=== PATIENT | female | born 1950 | race Caucasian/White ===

== ENCOUNTER 2017-01-30 11:41 | Emergency (ER) | payer OTHER, MEDICARE ==
[~2017-01-30] VITALS: Ht 162.6 cm; Wt 82.6 kg
[~2017-01-30 11:41] MED LIST: CLINDAMYCIN HC300 M1 PO; HYDRODIURIL 2525 MG PO; KEFLEX 250MG C250 MG PO; LISINOPRIL10 MG PO; METFORMIN1000 MG PO; PREDNISONE 20MG20 MG PO; SULFAMETHOXAZOLE-TMP PO
[2017-01-30] MEDS ORDERED: CLOBETASOL PROP15 GM TOP (12:23)
[2017-01-30] MEDS ORDERED: TRAMADOL HCL50 M1 PO (12:23)
[2017-01-30] MEDS ORDERED: LISINOPRIL10 M1 PO (12:23)
[2017-01-30] MEDS ORDERED: HYDROXYZINE HCL10 M1 (12:23)
[2017-01-30] MEDS ORDERED: METFORMIN HCL1000 M1 PO (12:23)
[2017-01-30] MEDS ORDERED: OXYCODONE-ACET1 EACH PO (12:24)
[2017-01-30] MEDS ORDERED: PACLITAXEL6 MG/1 ML (12:24)
--- NOTE | 2017-01-30 12:30 | ED HAND/WRIST INJURY COMPLAINT ---
History of Present Illness General Chief Complaint: Hand or Wrist Injury Stated Complaint: FINGER SWELLING Source: patient, family, old records Exam Limitations: no limitations Vital Signs & Intake/Output Vital Signs & Intake/Output Vital Signs Date Time Temp Pulse Resp B/P Pulse O2 O2 Flow FiO2 Ox Delivery Rate 01/30 1314 97.4 103 18 135/71 100 Room Air 01/30 1158 95.4 108 18 149/94 99 Allergies Coded Allergies: NO KNOWN ALLERGIES (11/06/11) Reconcile Medications Clobetasol Propionate 0.05 % CREAM..G. 1 ALONSO TOP BID RASH (Reported) apply to affected area(s) Hydroxyzine HCl (Unknown Strength) TABLET (Unknown Dose) PRN PRN ITCHING ( Reported) Lisinopril 10 MG TABLET 1 TAB PO DAILY HTN (Reported) Metformin HCl 1,000 MG TABLET 1 TAB PO BID DIABETES (Reported) Oxycodone HCl/Acetaminophen (Oxycodone-Acetaminophen 5-325) 5 MG-325 MG TABLET 1 TAB PO TIDPRN PRN PAIN (Reported) Oxycodone HCl/Acetaminophen (Percocet 5-325 MG Tablet) 5 MG-325 MG TABLET 1 TAB PO BID PRN PAIN Paclitaxel (Unknown Strength) VIAL (Unknown Dose) ONCE A WEEK BREAST CANCER ( Reported) Sulfamethoxazole/Trimethoprim (Bactrim Ds Tablet) 800 MG-160 MG TABLET 1 TAB PO BID paronychia Tramadol HCl 50 MG TABLET 1 TAB PO TIDPRN PRN PAIN (Reported) Triage Note: C/O PAIN, REDNESS, SWELLING TO RIGHT FOREFIGER WITH BLISTER AROUND NAILBED SINCE YESTERDAY. ATTRIBUTES SXS TO CHEMOTHERAPY (ON PAXIL) Triage Nurses Notes Reviewed? yes Duration: day(s): (2), constant Timing: recent history Injury Environment: home Severity: moderate Severity Numbers: 6 Pain/Injury Location: Right: 2nd finger. Method of Injury: unknown No Modifying Factors: none Associated Symptoms: swelling, redness HPI: 67-year-old female presents emergency room for evaluation complaining of a questionable blister pain that is throbbing aching however improved since yesterday to her right second finger. She denies any known injury or trauma. The patient is currently on taxol for breast ca. she is right-hand dominant no fevers or chills. She states the pain was worse last night and she had difficulty moving her finger however this morning the symptoms have resolved. She took a Percocet for her pain with improvement pain is aching throbbing 6 out of 10. There is no other modifying factors or associated symptoms. (LUCIE GREENE) Past History Travel History Traveled to [place] past 21 day No Medical History Any Pertinent Medical History? see below for history Neurological: NONE EENT: NONE Cardiovascular: HTN, Respiratory: NONE Gastrointestinal: NONE Hepatic: NONE Renal: NONE Musculoskeletal: NONE Psychiatric: NONE Endocrine: DM Cancer(s): RT BREAST CANCER Other Medical Hx: Recent treatment for Lyme disease Surgical History Surgical History: non-contributory Psychosocial History What is your primary language Turkish Tobacco Use: Never used ETOH Use: denies use Family History Hx Contributory? No (LUCIE GREENE) Review of Systems Review of Systems Constitutional: Reports: see HPI. All Other Systems: Reviewed and Negative Comments Review of systems: See HPI, All other systems negative. Constitutional, no chills no fever, no malaise HEENT: no sore throat no congestion, Cardiovascular: No chest pain , no palpitation , Skin, no rashes, no change in skin Respiratory: No dyspnea no cough no sputum GI: No nausea no vomiting, no diarrhea, : No dysuria Muscle skeletal: No joint pain,, no back pain, no neck pain, Neurologic: No numbness no headache Psych: No stress Heme/endocrine: No bruising no bleeding Immunology: No lymphadenopathy (LUCIE GREENE) Physical Exam Physical Exam General Appearance: well developed/nourished, no apparent distress, alert Hand Left: normal inspection, normal range of motion Hand Right: infection, 2nd finger Comments: Well-developed well-nourished patient in no apparent distress. HEENT: Atraumatic, extraocular motion intact Neck: Supple, FROM, Back: FROM Respiratory: No respiratory distress. Patient speaking in full complete sentences. Breath sounds clear to auscultation bilaterally: NO W/R/R Shoulder: Atraumatic/Stable. FROM . Elbow: Atraumatic/stable. FROM. No laxity Upper arm/Forearm: Atraumatic. Nontender. No edema, 5 out of 5 special officer automat strength noted to bilateral upper extremities Hand/Wrist: There is a indurated fluctuant area of ecchymosis abscess noted to the proximal aspect of the right second nailbed, tender to palpation Refills within normal limits. Sensation Skin intact. FROM Pulses: Normal/equal radial pulses bilaterally. Brisk cap refill Lower Extremities: full range of motion Neuro: Alert and oriented x3 Skin: Warm & dry;No appreciable rash on exposed skin Psych: Mood affect normal, normal memory normal judgment. (LUCIE GREENE) Progress Differential Diagnosis: abscess, cellulitis, contusion, compartment syndrome, fracture, paronychia, sprain Plan of Care: Orders Procedure Date/time Status EXTREMETIES CULTURE 01/30 1241 Active Microbiology 01/30 130 EXTREMITIE: Culture & Sensitivity - RECD 01/30 1305 EXTREMITIE: Gram Stain - RECD After verbal consent was obtained digital block to the right second finger performed by me using lidocaine 1%, area was cleansed with Betadine. A small incision was made over the paronychia with a large amount of purulent discharge cultures were sent and discussed with patient need close follow up with her primary care physician or oncologist whom she is already scheduled to see on Wednesday. Prescription for Bactrim was provided patient tolerated procedure well sterile dressing was applied I discussed with the patient return precautions, she feels comfortable this plan I answered all of her questions cleared for discharge (LUCIE GREENE) Departure Departure Time of Disposition: 1304 Disposition: HOME OR SELF CARE Condition: Stable Clinical Impression Primary Impression: Paronychia Referrals: AXEL WELSH,YUN Ernst (PCP/Family) Additional Instructions: folllow up with your oncologist next week as scheduled. bactrim as directed thsi was sent to your pharmacy. bacitracin daily keep wound covered. return at anytime sooner with any concerns Departure Forms: Customer Survey General Discharge Information Prescriptions: Current Visit Scripts Sulfamethoxazole/Trimethoprim (Bactrim Ds Tablet) 1 TAB PO BID #6 TAB Oxycodone HCl/Acetaminophen (Percocet 5-325 MG Tablet) 1 TAB PO BID PRN PAIN #12 TAB (LUCIE GREENE) PA/FIRE MANAGEMENT TECHNICIAN Co-Sign Statement Statement: ED Attending supervision documentation- [X] I saw and evaluated the patient. I have also reviewed all the pertinent lab results and diagnostic results. I agree with the findings and the plan of care as documented in the PA's/FIRE MANAGEMENT TECHNICIAN's documentation. [X] I have reviewed the ED Record and agree with the PA's/FIRE MANAGEMENT TECHNICIAN's documentation. [] Additions or exceptions (if any) to the PAs/FIRE MANAGEMENT TECHNICIAN's note and plan are summarized below: [] (PAULINA WELSH,YUN [place]) Procedures Incision and Drainage Site: r 2nd finger Blade Size: 11 I & D Procedure: Yes: betadine prep, sterile drapes applied, sterile dressing applied. Progress: digital block r 2nd finger lidocaine 1% 5 cc total pt nv intact after procedure tolerated well (ISHAAN GALVIN,LUCIE)
[2017-01-30] MEDS ORDERED: BACTRIM DS TAB1 EACH PO (13:07)
[2017-01-30 13:14] VITALS: BP 135/71
[2017-01-30] MEDS ORDERED: PERCOCET 5-3251 EACH PO (13:16)
[2017-03-09] MEDS ORDERED: NEXIUM 24HR22.3 MG PO (16:09)
== END 2017-01-30 13:20 ==
LOC: ERH 11:41
DX: L03.011 Cellulitis of right finger (principal)
CPT/HCPCS: 87184; 87070; 87147

== ENCOUNTER → 2017-03-12 | Day surgery (SDC) | payer OTHER, MEDICARE ==
[~2017-03-12] VITALS: Ht 162.6 cm; Wt 83.0 kg
[~2017-03-12] MED LIST changes: +BACTRIM DS TAB1 EACH PO; +CLOBETASOL PROP15 GM TOP; +HYDROXYZINE HCL10 M1; +LISINOPRIL10 M1 PO; +METFORMIN HCL1000 M1 PO; +NEXIUM 24HR22.3 MG PO; +OXYCODONE-ACET1 EACH PO; +PACLITAXEL6 MG/1 ML; +PERCOCET 5-3251 EACH PO; +TRAMADOL HCL50 M1 PO
--- NOTE | 2017-03-12 11:13 | MAMMOGRAPHY REPORT ---
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 COMPARISON: Ultrasound-guided biopsy and mammogram dated 08/04/2016. MRI scan and postbiopsy mammogram dated 09/07/2016. TECHNIQUE NEEDLE LOC: Proper informed consent is obtained from the patient after discussion of the procedure, potential risks and complications, and alternatives including declining the procedure today. Patient was given an opportunity for questions. The patient appeared to understand. The patient consented to the procedure and signed the consent form. RIGHT BREAST: GUIDANCE: Digital mammography. APPROACH: Lateral. TARGET: Biopsy clip in the upper outer quadrant of the left breast. ANESTHESIA: 10 mL Xylocaine 2%. LOCALIZATION MARKER: Kopans 5 cm needle localization system. The skin was prepped and local anesthesia administered. The needle was positioned and position assessed with mammography. The wire was hooked into position. The patient tolerated the procedure well and had no immediate complication. Diagram was marked for the surgeon. The target is a biopsy clip in the upper outer quadrant of the right breast, 4 cm deep to the skin with 8 cm of the wire remaining external to the skin. LEFT BREAST: GUIDANCE: Digital mammography. APPROACH: Lateral. TARGET: Biopsy clip in the upper outer quadrant of the left breast. ANESTHESIA: 10 mL Xylocaine 2%. LOCALIZATION MARKER: Kopans 5 cm needle localization system. The skin was prepped and local anesthesia administered. The needle was positioned and position assessed with mammography. The wire was hooked into position. The patient tolerated the procedure well and had no immediate complication. Diagram was marked for the surgeon. The target is a biopsy clip in the upper outer quadrant of the left breast, 2 cm deep to the skin with 11 cm of the wire remaining external to the skin. IMPRESSION: Status post bilateral breast needle localization with wires hooked into position. On the right side, the target is a biopsy clip in the upper outer quadrant of the right breast, 4 cm deep to the skin with 8 cm of the wire remaining external to the skin. On the left side, the target is a biopsy clip in the upper outer quadrant of the left breast, 2 cm deep to the skin with 11 cm of the wire remaining external to the skin.
--- NOTE | 2017-03-12 15:33 | Operative Report ---
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 Preoperative lymphoscintigraphy was also performed. 2 g of Ancef was given and bilateral breasts were prepped and draped in sterile fashion using ChloraPrep. 3 mL of methylene blue diluted with 2 mL saline was injected in the retroareolar fashion in each breast. The breast was approached first. Due to the pretreatment size of the tumor being 4 cm, a generous upper outer quadrantectomy was performed. A radial incision was made in the upper outer quadrant a skin ellipse was excised and tissue was taken down to the chest wall. Specimen was removed and marked for orientation using margin map. Intraoperative x-ray confirmed the presence of the clip. The wire was inadvertently removed during the dissection. Additional margins were taken in the medial, lateral, caudal, and deep positions. Cranial margin of the lumpectomy was the axilla. Hemostasis was maintained. Tissue was mobilized from the chest wall. The axilla was then approached. A hot lymph node was identified and excised as sentinel lymph node 1. An additional hot lymph node was identified as sentinel lymph node #2. Her were no other hot, blue, or palpable lymph nodes in the axilla. A 3 x 4 BioSorb Marker was placed. It was fastened to surrounding breast tissue in the medial, lateral, and caudal positions. Mammary clips were placed in the cranial margin extending up to the axilla. The mammary clips lion the extent of the lumpectomy cavity. Breast tissue was approximated over the Marker using 2-0 Vicryl sutures. The skin was closed using running Biosyn subcuticular stitch. The left breast was approached. Local anesthesia was again given. A curvilinear incision was made in the lower aspect of the breast to encompass an ellipse of skin. The area of concern was dissected using electrocautery. The specimen was removed and marked for orientation using margin map. Intraoperative x-ray confirmed the presence of the clip in specimen. Additional margins were taken in the cranial, caudal, medial, lateral, and deep positions. Stasis maintained. Due to the superficial nature of the lumpectomy extending to under the nipple areolar complex, a BioSorb Marker was not placed. Mammary clips used to lion the extent of dissection. Deep tissue was proximal made using interrupted Vicryl sutures. The skin was closed using a running Biosyn subcuticular stitch. The axilla was then approached. A transverse incision was made in the lower axilla. The axilla was entered. There was a single hot and blue lymph node identified. There were no other hot, blue, or palpable lymph nodes in the axilla. Hemostasis maintained. The tissue was proximal made using interrupted Vicryl sutures. Skin was closed using a running Biosyn subcuticular stitch. Sterile dressings were applied, the patient was transferred to the recovery room in satisfactory condition.
--- NOTE | 2017-03-12 17:25 | MAMMOGRAPHY REPORT ---
EXAMINATION: MM NEEDLE LOCALIZATION SPECIMEN FROM THE BREAST, BILATERAL CLINICAL INDICATION: Excision of left breast microinvasive lobular carcinoma in the right breast invasive ductal carcinoma. COMPARISON: Needle localization films from earlier today. TECHNIQUE: Single specimen radiograph of the right and left breast specimens was obtained. FINDINGS: The radiograph of the excised surgical specimen from the left breast shows that the hookwire is delivered intact and the marker clip is identified in the specimen. The radiograph of the excised specimen from the right breast shows a marker clip and multiple pleomorphic calcifications. The hook wire is not imaged and was reported by the surgical team to have fallen out of the specimen at time of radiography. IMPRESSION: Satisfactory excision of the targeted lesions bilaterally. These findings were communicated to the surgeon in the OR at the time of specimen radiography.
== END ==
LOC: STS 02:42 → CBW.IIU 10:00 → STS 10:00 → CBW.MAMMO 10:30
DX: C50.811 Malignant neoplasm of overlapping sites of right female breast (principal); C50.812 Malignant neoplasm of overlapping sites of left female breast; Z17.1 Estrogen receptor negative status [ER-]; E11.8 Type 2 diabetes mellitus with unspecified complications; Z79.84 Long term (current) use of oral hypoglycemic drugs; I49.3 Ventricular premature depolarization; I15.8 Other secondary hypertension
CPT/HCPCS: 88305; 88307; A9520; C9728; J0690; J2001; J2250

== ENCOUNTER 2017-05-24 05:04 | Inpatient (IN) | payer OTHER, MEDICARE ==
[~2017-05-24] VITALS: Ht 162.6 cm; Wt 77.1 kg
[~2017-05-24 05:04] MED LIST changes: +VITAMIN D2000 UNIT PO
--- NOTE | 2017-05-24 09:52 | Operative Report ---
Operative/Inv Procedure Report Surgery Date: 05/24/17 Name of Procedure: Bilateral Mastectomy Pre-Operative Diagnosis: Bilateral breast cancer Post-Operative Diagnosis: Same Estimated Blood Loss: 50ml to 100ml Surgeon/Supervisor Plasma: MILTON WELSH,HARDEEP Wen M.D., Justo Nagel M.D. Anesthesia: general endotracheal tube Specimens: Left breast, suture harding medial, right breast, suture marked medial Operative/Procedure Note Note: Patient is status post bilateral lumpectomies and sentinel lymph node biopsies. Positive margin was found on the right side and patient opted for bilateral mastectomies. Patient brought to the operating room on 05/24/17, placed supine on the table and enteral anesthesia was administered. Preoperative antibiotics of 2 g of Ancef were given. The left breast was approached first. Half percent Marcaine was injected and curvilinear incisions were made above and below the nipple areolar complex to encompass the prior lumpectomy scar. Skin flaps are created superiorly to the level of clavicle, medially to the sternum, laterally to the axilla, and to the superior border the rectus sheath. The breast was then removed from the pectoralis muscle. Suture was used to lion the medial aspect of the breast. Hemostasis was achieved using electrocautery. The Port-A-Cath was then approached. An incision was made in the previous incision. The port was easily identified and grasped. This was removed and pressure was held. Hemostasis was adequate. Deep tissue was proximal made using interrupted Vicryl sutures, and skin was closed using running Biosyn subcuticular stitch. The right breast was then approached. The previous lumpectomy incision in the upper outer quadrant was extended to encompass the nipple areolar complex. Skin flaps are created superiorly, inferiorly, medially, and laterally in a similar fashion. Lumpectomy bed was encountered laterally. The breast was then removed from the pectoralis fashion using electrocautery. Hemostasis was maintained. Patient was stable and the remainder the procedure was performed by Dr. Wen.
--- NOTE | 2017-05-24 12:06 | Operative Report ---
Operative/Inv Procedure Report Surgery Date: 05/24/17 Name of Procedure: Bilateral breast reduction with tissue expanders and Flex HD Pre-Operative Diagnosis: Absent breasts Post-Operative Diagnosis: Same Estimated Blood Loss: scant (150) Surgeon/Pipe Setter: monica Anesthesia: general endotracheal tube Operative/Procedure Note Note: Patient was counseled extensively regards to the procedure the alternatives risks and expected outcomes as relates to request for surgical intervention to treat bilateral absent breast. The tissue sourcing coordinator and Flex HD technique followed by permanent breast prosthesis. A SPS informed consents which she has returned sign and has no questions regarding them this morning. To the operating placed supine on the table Venodyne boots were placed. This began a bilateral mastectomy. Completion of her procedure into the room reprepped the skin and applied new drapes gowns and instruments. Submuscular pocket was opened. Tissue sourcing coordinator was placed after fixing Flex HD has an inferior sling. Drains are placed both above and below the Flex HD and a 3 layer closure was carried out. This procedure was done in similar fashion bilaterally. Note multiple glove changes triple antibiotic and Betadine bath was used in the pocket and expanders with minimal touch technique. Ends dictation
--- NOTE | 2017-05-24 13:08 | Admission Core Measures ---
Admission Meds I reviewed the following Meds: Current Medications Sig/Ariel Start time Last Medication Dose Stop Time Status Admin Cefazolin Sodium 2,000 MG ONCE 05/24 0000 NR (Kefzol-Ancef Inj) 05/24 2359 Lisinopril 10 MG DAILY 05/25 1000 AC (Prinivil) Metformin HCl 1,000 MG BID 05/24 2200 AC (Glucophage) Acute Coronary Syndrome Inclusion Criteria ACS Diagnosis No Inpatient Core Measures LDL Reminder: If No, please order W/I first 24hr of stay Congestive Heart Failure Inclusion Criteria CHF Diagnosis No Cerebrovascular accident Inclusion Criteria CVA/TIA Diagnosis No Inpatient Core Measures Bedside Swallow Eval Reminder: If BSE failed, place ST order Antithrombotic Reminder: Order Antithrombotic Medication by end of day 2 Antithrombotic Reminder: Document Reason Antithrombotic Not ordered by end of day 2 AFIB/Flutter Reminder: If Present, add to problem list AFIB/Flutter Reminder: Order Anticoag Medication for pts with AFIB/Flutter Atherosclerosis Reminder: If Present, add to problem list LDL Reminder: If No, please order W/I first 24hr of stay PT Order Reminder: If No, please order Venous thromboembolism Inpatient Core Measures VTE Risk Factors: Age > 40, Surgery No [facility] VTE prophylaxis d/t No contraindications No VTE Pharm Prophylaxis d/t No contraindications Inclusion Criteria - Per Current guidelines, there needs to be overlap - treatment for the first 5 days of Warfarin therapy. - Parenteral Anticoagulation (IV or SC) needs to be - given along with Warfarin therapy. VTE Diagnosis No VTE Type NONE VTE Confirmed by (Test) NONE Problem List As ranked by this Provider includes Assessment & Plan 1. Bilateral breast cancer HOME MEDS Home Med List Cholecalciferol (Vitamin D3) (Vitamin D) 2,000 UNIT CAPSULE 1 CAP PO DAILY PROPHO (Reported) Lisinopril 10 MG TABLET 1 TAB PO DAILY HTN (Reported) Metformin HCl 1,000 MG TABLET 1 TAB PO BID DIABETES (Reported)
[2017-05-24] MEDS ORDERED: BACTRIM DS TAB1 EACH PO (13:13)
[2017-05-24 16:15] VITALS: BP 120/80
--- NOTE | 2017-05-24 17:10 | PN- General Surgery ---
Subjective Subjective: pt comfortable. Pain is under control. She denies any nausea or vomiting. Objective Vital Signs and I&Os Vital signs stable, afebrile Physical Exam: Well-developed well-nourished no apparent distress. HEENT: Atraumatic, extraocular motion intact Neck: Supple, no lymphadenopathy trachea is midline, Respiratory: No respiratory distress Chest: Chest is clean dry and intact. CHRISTIANO drains noted 2 on each side with small amount of bloody fluid being drained. Extremities: No edema, no calf pain Neuro: Alert and oriented x3 Psych: Mood affect normal, normal memory normal judgment. Skin: Warm and dry, no rash on exposed skin Assessment/Plan Assessment/Plan Postop day #0 status post bilateral mastectomy, breast reconstruction and tissue expanders Perioperative antibiotics with vancomycin, history of MRSA CHRISTIANO drains, 2 on each side, to self suction Strict ins and outs IV fluids until tolerating by mouth adequately pain medication as needed Diabetic diet Heparin for DVT prophylaxis Alps for DVT prophylaxis Core Measures/Miscellaneous Venous Thromboembolism VTE Risk Factors: Age > 40, Cancer/chemo/oth therapy, Surgery VTE Contraindications: No Contraindications VTE Diagnosis: No VTE Type: NONE VTE Confirmed by (Test): NONE Beta Ken Is Beta Ken a Home Med? No Antibiotics Is Patient on Antibiotics? Yes If Yes: prophylaxis
--- NOTE | 2017-05-24 19:31 | NUR ---
NURSE NOTE: QUESTIONED SURGICAL PA ABOUT ARM RESTRICTIONS AT THIS TIME, PER PA THEIR ARE NO ARM RESTRICTIONS FOR PRESSURES, BLOOD DRAWS, ETC.
[2017-05-24 20:39] VITALS: BP 140/76
[2017-05-24 22:35] VITALS: BP 128/70
[2017-05-25 00:51] VITALS: BP 100/60
[2017-05-25 04:07] VITALS: BP 100/70
[2017-05-25 08:28] VITALS: BP 118/60
[2017-05-25 08:40] LABS: ABSOLUTE BASOPHIL COUNT 0 /CUMM (0.0-0.2); ABSOLUTE EOSINOPHIL COUNT 0.2 /CUMM (0.0-0.7); ABSOLUTE GRANULOCYTE CT 6.1 /CUMM (1.4-6.5); ABSOLUTE LYMPH COUNT 1.3 /CUMM (1.2-3.4); ABSOLUTE MONOCYTE COUNT 0.8 /CUMM (0.10-0.60); BASOPHIL % 0.3 % (0.0-2.0); EOSINOPHIL % 1.9 % (0-5); GRANULOCYTE % 72.5 % (42.2-75.2); HEMATOCRIT 32.2 % (37-47); MEAN CORPUSCULAR HGB 27.6 PG (27.0-31.0); MEAN CORPUSCULAR HGB CONC 32.5 G/DL (33.0-37.0); MEAN CORPUSCULAR VOLUME 84.9 FL (81.0-99.0); MEAN PLATELET VOLUME 9.5 FL (7.4-10.4); PLATELET COUNT 158 /CUMM (130-400); WHITE BLOOD CELL COUNT 8.4 /CUMM (4.8-10.8)
[2017-05-25 15:15] VITALS: BP 110/58
[2017-05-25] MEDS ORDERED: PERCOCET 5-3251 EACH PO (17:00)
--- NOTE | 2017-05-25 17:00 | PN- General Surgery ---
Subjective Subjective: Patient reporting improvement in symptoms. States that she is able to move her bilateral arms more and that her pain is more under control than earlier today. She denies cardiac related chest pain, shortness of breath and difficulty breathing. She denies nausea and vomitting. She is able to ambulate and has been voiding without difficulty. Objective Vital Signs and I&Os Vital Signs Date Time Temp Pulse Resp B/P B/P Pulse O2 O2 Flow FiO2 Mean Ox Delivery Rate 05/25 1515 98.4 81 18 110/58 93 Room Air 05/25 1013 82 138/70 05/25 0828 98.1 85 20 118/60 93 Room Air 05/25 0407 98.4 77 18 100/70 90 Room Air 05/25 0051 98.7 84 18 100/60 93 Room Air 05/24 2235 98.9 91 18 128/70 93 05/24 2123 Room Air 05/24 2039 99.0 93 18 140/76 93 Intake & Output 05/25 1600 05/25 0800 05/25 0000 05/24 1600 05/24 0800 05/24 0000 Intake Total 850 1080 780 Output Total 485 805 500 Balance 365 275 280 Intake, IV 500 600 300 Intake, Oral 350 480 480 Number 0 Bowel Movements Output, 85 105 150 Drainage Output, Urine 400 700 350 Patient 170 lb Weight Weight Reported by Patient Measurement Method Physical Exam: General: Alert and oriented x3, no acute distress Cardiac: RRR, s1s2 Pulm: CTA bilaterally ABD: Soft, non-tender, non-distended Surgical site: Dressing dry and intact, no hematoma noted on exam. JPx4 holding suction. Sanguinous output noted. Extremities: Moves all extremities, distal sensation intact. Skin warm and well perfused. DP pulses palpable. Bilateral calves soft and non-tender. Assessment/Plan Assessment/Plan This is a 67 year old female with a pmh significant for breast ca who is pod 1 s /p bilateral mastectomy with removal of portacath and placement of tissue expanders. Admitted to hospital for pain control, noticing improvement. -Continue current pain regimen, convert to all po upon hospital discharge -Continue vancomycin q12 hours while in hospital, transition to po bactrim upon hospital discharge -OOB -Diet as tolerated -CHRISTIANO to self suction -SubQ hep for dvt ppx -Follow up with Dr. Wen and Dr. Senior in one week from date of surgery Core Measures/Miscellaneous Venous Thromboembolism VTE Risk Factors: Age > 40, Cancer/chemo/oth therapy, Surgery VTE Contraindications: No Contraindications VTE Diagnosis: No VTE Type: NONE VTE Confirmed by (Test): NONE Beta Ken Is Beta Ken a Home Med? No Antibiotics Is Patient on Antibiotics? Yes If Yes: prophylaxis
--- NOTE | 2017-05-25 17:07 | Patient Discharge Instructions ---
Discharge Instructions General Discharge Information You were seen/treated for: Breast CA You had these procedures: Bilateral mastectomy, removal of port-a-cath, and placement of tissue expanders bilaterally Watch for these problems: Increasing pain despite the use of pain medication Increasing redness, warmth, swelling Drainage from incision Fever >101.5 Call Surgeon to remove: Other, drains Do not soak the wound: Yes No bath, but you may shower: Yes Other wound care: Keep wound clean and dry Special Instructions: Drain care daily, record amount of drainage to report to [facility] Segura Diet Continue normal diet: Yes Recommended Diet: Regular Activity Full Activity/No Limits: No Activity Self Limited: Yes Pounds, do NOT lift more than: 5 Activity Limited to: Weight bear as tolerated Additional ACTIVITY Info: Avoid bending forward Acute Coronary Syndrome Inclusion Criteria At DC or during hospital stay patient has or had the following: ACS DIAGNOSIS No Discharge Core Measures Meds if any: Prescribed or Continued at Discharge Meds if any: NOT Prescribed or Continued at Discharge Congestive Heart Failure Inclusion Criteria At DC or during hospital stay patient has or had the following: CHF DIAGNOSIS No Discharge Core Measures Meds if any: Prescribed or Continued at Discharge Meds if any: NOT Prescribed or Continued at Discharge Cerebrovascular accident Inclusion Criteria At DC or during hospital stay patient has or had the following: CVA/TIA Diagnosis No Discharge Core Measures Meds if any: Prescribed or Continued at Discharge Meds if any: NOT Prescribed or Continued at Discharge Venous thromboembolism Inclusion Criteria VTE Diagnosis No VTE Type NONE VTE Confirmed by (Test) NONE Discharge Core Measures - Per Current guidelines, there needs to be overlap - treatment for the first 5 days of Warfarin therapy. - If discharged on Warfarin prior to 5 days of - overlap therapy, the patient will need to be - assessed for post discharge needs including - *Post discharge parental anticoagulation - *Warfarin and/or parental anticoagulation education - *Follow up date to check INR post discharge At least 5 days overlap therapy as Inpatient No Meds if any: Prescribed or Continued at Discharge Note: Overlap Therapy is Warfarin and Anticoagulant Meds if any: NOT Prescribed or Continued at Discharge
--- NOTE | 2017-05-25 18:12 | NUR ---
ALERT AND ORIENTED X 3. ON ROOM AIR. DENIES SHORTNESS OF BREATH VITAL SIGNS STABLE. DENIES CHEST PAIN. + PULSES. TINGLING TO HANDS. PATIENT STATES TINGLING IS NOT NEW. DSGS TO [place] ARE C/D/I. BLOODY OUTPUT FROM CHRISTIANO DRAINS NOTED. STEADY GAIT. TRACE REDNESS AND SWELLING TO R FOREARM FROM INFILTRATED IV. MEDICATION GIVEN FOR DISCOMFORT. WILL CONTINUE TO MONITOR
[2017-05-25 22:42] VITALS: BP 116/72
[2017-05-26 07:45] VITALS: BP 120/67
[2017-05-26 08:47] VITALS: BP 120/67
--- NOTE | 2017-05-26 09:42 | PN- General Surgery ---
Subjective Subjective: Reports moving arms easier. Pain improves with percocet. She is tolerating diet. No nausea. Out of bed without dizziness. No shortness of breath. No chest pains. She is comfortable with CHRISTIANO drain care herself at home. She anticipates discharge to home today. Objective Vital Signs and I&Os Vital Signs Date Time Temp Pulse Resp B/P B/P Pulse O2 O2 Flow FiO2 Mean Ox Delivery Rate 05/26 0847 83 120/67 05/26 0745 98.2 83 20 120/67 92 Room Air 05/25 2242 98.5 81 18 116/72 92 Room Air 05/25 1515 98.4 81 18 110/58 93 Room Air 05/25 1013 82 138/70 Intake & Output 05/26 1600 05/26 0800 05/26 0000 05/25 1600 05/25 0805/25 0000 Intake Total 250 443 824 7855 780 Output Total 71 465 485 805 500 Balance 179 -65 365 275 280 Intake, IV 10 500 600 300 Intake, Oral 240 400 350 480 480 Number 0 0 Bowel Movements Output, 71 115 85 105 150 Drainage Output, Urine 350 400 700 350 Patient 170 lb Weight Weight Reported by Patient Measurement Method Physical Exam: General - alert & oriented x 3. comfortable. no acute distress. Lungs - clear bilaterally. no w/r/r. Cardiac - s1s2. reg. Chest - wearing surgical bra. CHRISTIANO drains with serosang drainage. Abdomen - soft. nontender. Extremities - warm bilaterally. no c/c/e. calves soft and nontender b/l. Current Medications: Current Medications Sig/Ariel Start time Last Medication Dose Route Stop Time Status Admin Acetaminophen 650 MG Q6P PRN 05/24 1715 AC PO Docusate Sodium 100 MG DAILY NEEDED PRN 05/24 1715 AC PO Heparin Sodium 5,000 UNIT Q8 05/24 1400 AC 05/26 (Porcine) SC 0523 Lisinopril 10 MG DAILY 05/25 1000 DC PO Lisinopril 10 MG DAILY 05/25 1000 AC 05/26 PO 0847 Metformin HCl 1,000 MG BID 05/24 2200 AC 05/26 PO 0848 Morphine Sulfate 2 MG Q2P PRN 05/24 1715 AC 05/24 IV 2140 Ondansetron HCl 4 MG Q6P PRN 05/24 1715 AC IV Oxycodone/ 1 TAB Q4P PRN 07/17 1715 AC Acetaminophen PO Oxycodone/ 2 TAB Q4P PRN 05/24 1715 AC 05/26 Acetaminophen PO 0848 Patient Medication 1 ED .STK-MED ONE 05/25 1428 MO Teaching ED 05/25 1429 Promethazine HCl 12.5 MG Q6P PRN 05/24 1715 AC IV 05/31 1259 Sodium Chloride 1,000 ML Q13H 05/24 1715 DC 05/25 IV 0649 Vancomycin HCl 1,000 MG DAILY 05/26 1000 AC 05/26 Sodium Chloride 250 ML IV 05/27 0959 0848 Vancomycin HCl 1,000 MG Q12 05/24 2200 DC 05/25 Sodium Chloride 250 ML IV 05/25 2159 1005 Results Last 48 Hours of Labs: Laboratory Tests 05/25 07 Chemistry Sodium (137 - 145 mmol/L) 137 Potassium (3.5 - 5.1 mmol/L) 4.0 Chloride (98 - 107 mmol/L) 104 Carbon Dioxide (22 - 30 mmol/L) 25 Anion Gap (5 - 16) 8 BUN (7 - 17 mg/dL) 18 H Creatinine (0.5 - 1.0 mg/dL) 0.6 Estimated GFR (>60 ml/min) > 60 BUN/Creatinine Ratio (7 - 25 %) 30.0 H Hematology CBC w Diff NO MAN DIFF REQ WBC (4.8 - 10.8 /CUMM) 8.4 RBC (4.20 - 5.40 /CUMM) 3.80 L Hgb (12.0 - 16.0 G/DL) 10.5 L Hct (37 - 47 %) 32.2 L MCV (81.0 - 99.0 FL) 84.9 MCH (27.0 - 31.0 PG) 27.6 RDW (11.5 - 14.5 %) 15.0 H Plt Count (130 - 400 /CUMM) 158 MPV (7.4 - 10.4 FL) 9.5 Gran % (42.2 - 75.2 %) 72.5 Lymphocytes % (20.5 - 51.1 %) 15.4 L Monocytes % (1.7 - 9.3 %) 9.9 H Eosinophils % (0 - 5 %) 1.9 Basophils % (0.0 - 2.0 %) 0.3 Absolute Granulocytes (1.4 - 6.5 /CUMM) 6.1 Absolute Lymphocytes (1.2 - 3.4 /CUMM) 1.3 Absolute Monocytes (0.10 - 0.60 /CUMM) 0.8 H Absolute Eosinophils (0.0 - 0.7 /CUMM) 0.2 Absolute Basophils (0.0 - 0.2 /CUMM) 0 PUBS MCHC (33.0 - 37.0 G/DL) 32.5 L Assessment/Plan Assessment/Plan This is a 67 year old female with a pmh significant for breast ca who is POD#2 s /p bilateral mastectomy with removal of portacath and placement of tissue expanders tolerating diet pain controlled will transition iv to oral antibiotics when discharged CHRISTIANO drain teaching done hep sc - dvt ppx d/c home today will d/w and Core Measures/Miscellaneous Venous Thromboembolism VTE Risk Factors: Age > 40, Cancer/chemo/oth therapy, Surgery VTE Contraindications: No Contraindications VTE Diagnosis: No VTE Type: NONE VTE Confirmed by (Test): NONE Beta Ken Is Beta Ken a Home Med? No Antibiotics Is Patient on Antibiotics? Yes If Yes: prophylaxis
[2017-05-26] MEDS ORDERED: BACTRIM DS TAB1 EACH PO (09:47)
[2017-05-26] MEDS ORDERED: PERCOCET 5-3251 EACH PO (09:47)
--- NOTE | 2017-05-26 12:15 | Surgical Discharge Summary ---
Visit Information Visit Dates Admission Date: 05/24/17 Discharge Date: 05/26/17 History of Present Illness Chief Complaint: Bilateral breast cancer Medical History Blood Transfusion Hx: No Neurological: NONE EENT: NONE Cardiovascular: HTN, Respiratory: NONE Gastrointestinal: NONE Hepatic: NONE Renal: NONE Musculoskeletal: NONE Psychiatric: NONE Endocrine: DM Cancer(s): RT BREAST CANCER Other Medical Hx: Recent treatment for Lyme disease History of MRSA: Yes History of VRE: No History of CDIFF: No Isolation History: Contact Surgical History Pertinent Surgical History: non-contributory, lumpectomy Psychosocial History Where Do You Live? Home Who Do You Live With? Family What is Your Primary Language? Macanese Review of Systems: Negative Hospital Course Course Attending Physician: HARDEEP ROSE MD Primary Care Physician: YUN REYNA MD Hospital Course: Patient is admitted for bilateral mastectomy with tissue qa tester placement on 05/24/2017. Her postoperative course went uneventfully. On the morning of postoperative day when she is complaining of some discomfort and fatigue. She had assistance in CHRISTIANO drain teaching and ambulation. By the morning of postoperative day 2 her pain was better controlled and she was discharged home. Allergies: Coded Allergies: NO KNOWN ALLERGIES (11/06/11) Disposition Summary Disposition Principal Diagnosis: Bilateral breast cancer Additional Diagnosis: None Discharge Disposition: home or self care Discharge Instructions General Discharge Information Code Status: Full Code Patient's Diet: Ad gigi. Patient's Activity: Ad gigi. Follow-Up Instructions/Appts: Follow-up with Dr. Wen and Dr. Rose in one week Medications at Discharge Discharge Medications: Continue taking these medications: Metformin HCl (Metformin HCl) 1,000 MG TABLET 1 Tablet ORAL TWICE DAILY Qty = 180 Comments: Last Taken:05/26/17 Time:0848am Lisinopril (Lisinopril) 10 MG TABLET 1 Tablet ORAL DAILY Qty = 90 Comments: Last Taken:05/26/17 Time:0848am Cholecalciferol (Vitamin D3) (Vitamin D) 2,000 UNIT CAPSULE 1 Capsule ORAL DAILY Comments: not given in hospital Start taking the following new medications: Sulfamethoxazole/Trimethoprim (Bactrim Ds Tablet) 800 MG-160 MG TABLET 1 Tablet ORAL TWICE DAILY Qty = 10 No Refills Comments: not given in hospital Oxycodone HCl/Acetaminophen (Percocet 5-325 MG Tablet) 5 MG-325 MG TABLET 1-2 Tablet ORAL EVERY 4-6 HOURS NEEDED as needed for pain control Qty = 36 No Refills Comments: Last Taken:05/26/17 Time:0848am 2 tabs given
== END 2017-05-26 12:00 | DRG 583 ==
LOC: SDA 05:04 → 2NB 05:04 → ENRESERV 13:54 → ENTRNSPT 15:25 → 2NB 16:19 → CMPTRNSPT 16:39 → ENPENDDIS 05-26 10:47 → 2NB 05-26 12:00
PROVIDERS: Nurse Practitioner; ADMIT Surgery
PROC: 0HHV0NZ Insertion of Tissue Expander into Bilateral Breast, Open Approach (ICD-10-PCS; principal; 2017-05-24)
PROC: 0HTV0ZZ Resection of Bilateral Breast, Open Approach (ICD-10-PCS; 2017-05-24)
PROC: 02PY03Z Removal of Infusion Device from Great Vessel, Open Approach (ICD-10-PCS; 2017-05-24)
DX: C50.912 Malignant neoplasm of unspecified site of left female breast (principal); C50.911 Malignant neoplasm of unspecified site of right female breast; I10 Essential (primary) hypertension; E11.9 Type 2 diabetes mellitus without complications; Z79.84 Long term (current) use of oral hypoglycemic drugs; E04.2 Nontoxic multinodular goiter
CPT/HCPCS: 2NAP; 36415; 82436; 88307; J0690; J1170; J1580; J1644; J2250; J2405; J2550; J3010; J3370; J7040